=== PATIENT | male | born 1990 | race Caucasian/White ===

== ENCOUNTER 2023-11-16 22:39 | Emergency (ER) | payer OTHER ==
[~2023-11-16] VITALS: Ht 175.3 cm; Wt 79.4 kg
[2023-11-16 22:44] VITALS: BP_SYST 108; PULSE 74; RESP 20; TEMP 98.1; O2SAT 96
[2023-11-16] MEDS: levETIRAcetam 500 MG IV PREMIX 100 ML IV ONE (23:41)
[2023-11-17 00:22] LABS: BASOPHILS % (AUTO) 0.6 % (0.0-2.0); EOSINOPHILS # (AUTO) 0.2 K/uL (0.0-0.4); EOSINOPHILS % (AUTO) 2.6 % (0.0-4.0); HEMATOCRIT 38.3 % (36-54); HEMOGLOBIN 12.8 g/dL (14.0-18.0); LYMPHOCYTES # (AUTO) 1.2 K/uL (1.0-5.5); LYMPHOCYTES % (AUTO) 15.4 % (20.5-51.5); MEAN CORPUSCULAR HEMOGLOBIN 29 pg (27-31); MEAN CORPUSCULAR HGB CONC 34 % (32-36); MEAN CORPUSCULAR VOLUME 88 fL (79.0-98.0); MONOCYTES % (AUTO) 12.6 % (1.7-9.3); NEUTROPHILS # (AUTO) 5.3 K/uL (1.8-7.7); NEUTROPHILS % (AUTO) 68.8 % (40.0-70.0); PLATELET COUNT (AUTO) 209 K/uL (130-430); RED BLOOD CELL COUNT(AUTO) 4.37 MIL/uL (4.2-6.2); RED CELL DISTRIBUTION WIDTH 13.4 % (9.0-15.0); WHITE BLOOD COUNT (AUTO) 7.7 K/uL (4.8-10.8)
[2023-11-17 00:35] LABS: CALCIUM 9.4 mg/dL (8.4-11.0); CREATININE 0.88 mg/dL (0.55-1.30); POTASSIUM 3.4 mmol/L (3.5-5.1)
[2023-11-17 01:10] VITALS: BP_SYST 109; PULSE 69; RESP 16; TEMP 98.1; O2SAT 99
== END 2023-11-17 01:07 | disposition home or self-care (01) ==
LOC: SED 22:39 → EDBD 22:39 → SED 11-17 01:07
DX: G40.909 Epilepsy, unspecified, not intractable, without status epilepticus (principal); Z79.899 Other long term (current) drug therapy
CPT/HCPCS: 99284; 96365; 80048; 85025; 36415; J1953